=== PATIENT | male | born 2000 | race Two or more races ===

== ENCOUNTER 2024-09-14 21:04 | Emergency (ER) | payer SELFPAY ==
[2024-09-14 21:16] VITALS: PULSE 74; RESP 18; O2SAT 97; BMI 22.7
[2024-09-14 21:21] VITALS: BP 143/84; PULSE 66; RESP 18; TEMP 36.6; O2SAT 96
--- NOTE | 2024-09-14 21:29 | PD.EDRME ---
Rapid Medical Screening Exam RME Arrival date/time: 09/14/24 21:04 24 yo m present to ED for c/o of n/v, for 3 days I have greeted and performed a focused initial assessment of this patient. A comprehensive ED assessment and evaluation of the patient, analysis of all test results, and completion of the medical decision making process will be conducted by additional ED providers. Chief Complaint: Nausea/Vomiting/Diarrhea Vital signs: Vital Signs Temperature 97.9 F 09/14/24 21:21 Pulse Rate 66 09/14/24 21:21 Respiratory Rate 18 09/14/24 21:21 Blood Pressure 143/84 H 09/14/24 21:21 Pulse Oximetry (%) 96 09/14/24 21:21 Oxygen Delivery Method Room Air 09/14/24 21:21
[2024-09-14] MEDS: ONDANSETRON ODT 4 MG TABRAP 8 MG PO (22:15)
[2024-09-14] MEDS: KETOROLAC INJ 60 MG/2 ML VIAL 30 MG IM (22:17)
[2024-09-14 22:43] LABS: Basophils % (Auto) 0 % (0-2.5); Eosinophils % (Auto) 0 % (0-10); Hematocrit 40.7 % (41.0-53.0); Hemoglobin 14.1 g/dL (13.5-16.0); Immature Granulocytes % (Auto) 0 % (0-0); Immature Granulocytes Auto 0.03 Thou/mm3 (0.00-0.00); Lymphocytes # (Auto) 1.1 Thou/mm3 (1.0-4.8); Lymphocytes % (Auto) 10 % (10-50); Mean Corpuscular HGB Conc 34.6 g/dl (31.0-37.0); Mean Corpuscular Hemoglobin 30.7 pg (25.0-35.0); Mean Corpuscular Volume 89 fL (80-100); Monocytes # (Auto) 0.5 Thou/mm3 (0.0-0.8); Monocytes % (Auto) 4 % (0-12); Neutrophils # (Auto) 9.2 Thou/mm3 (1.8-7.7); Neutrophils % (Auto) 85 % (37-80); Nucleated Red Blood Cell % 0 /100 WBC (0); Platelet Count 370 Thou/mm3 (140-440); Red Blood Count 4.59 Miln/mm3 (4.50-5.90); White Blood Count 10.7 Thou/mm3 (3.8-10.6)
[2024-09-14 23:09] LABS: Alanine Aminotransferase 21 U/L (10-49); Albumin, Serum 5.4 gm/dL (3.5-5.0); Albumin/Globulin Ratio 1.8 (1.2-2.2); Alcohol, Blood Medical < 3.0 mg/dL (0-10.0); Alkaline Phosphatase 81 U/L (46-116); Anion Gap 8 (7-16); Aspartate Amino Transferase 29 U/L (0-34); BUN/Creatinine Ratio 18 Ratio (12-20); Bilirubin,Total 0.6 mg/dL (0.3-1.2); Blood Urea Nitrogen 20 mg/dL (9-23); Calcium 10.4 mg/dL (8.3-10.6); Calcium (Corrected) 10.4 mg/dL (8.5-10.1); Carbon Dioxide 24.7 mMol/L (20.0-31.0); Chloride 103 mMol/L (98-107); Creatinine (Component) 1.1 mg/dL (0.6-1.3); Estimated Creatinine Clearance 97.2 mL/min (>60); Glucose 150 mg/dL (74-106); Lipase 30 U/L (12-53); Osmolality,Calculated 277 (275-295); Potassium 4.3 mMol/L (3.4-5.1); Sodium 136 mMol/L (136-145); Total Protein 8.4 gm/dL (5.7-8.2); eGFR > 60 See Note
[2024-09-14 23:45] LABS: Amphetamine/Methamp Scrn,U Negative (Negative); Barbiturate Screen,Urine Negative (Negative); Benzodiazepines Screen,Urine Negative (Negative); Benzoylecgonine Screen, Ur Negative (Negative); Fentanyl Screen,Urine Negative (Negative); Opiate Screen,Urine Negative (Negative); THC Screen,Urine Positive (Negative)
--- NOTE | 2024-09-15 00:14 | PC.NURSE ---
CALLED PT IN ER LOBBY AND OUTSIDE AND NO ANSWER AT THIS TIME.
--- NOTE | 2024-09-15 00:55 | PC.NURSE ---
CALLED PT OUTSIDE OF ER AND IN ER LOBBY AND NO ANSWER AT THIS TIME
--- NOTE | 2024-09-15 01:04 | PD.EDNV ---
Nausea/Vomit./Diarrhea-RME/HPI General Chief complaint: Nausea/Vomiting/Diarrhea Stated complaint: NAUSEA/VOMITING Time Seen by Provider: 09/14/24 23:11 Arrival date/time: 09/14/24 21:04 RME / HPI RME / HPI Narrative: 09/14/24 21:04 24 yo m present to ED for c/o of n/v, for 3 days I have greeted and performed a focused initial assessment of this patient. A comprehensive ED assessment and evaluation of the patient, analysis of all test results, and completion of the medical decision making process will be conducted by additional ED providers. This section includes all my notes and documentations, including HPI, PE, and ED course. Jeet Chicas MD HPI: ROS: All negative except as documented in HPI. Physical Exam: General: Alert and oriented. Eyes: Conjunctivae and lids clear. ENT: No nasal congestion. Neck: Supple. Lungs: No respiratory distress. Skin: Warm and dry. Neuro: Alert and oriented X 3. Physical Exam: General: Alert and oriented. No acute distress when remaining still. Eyes: Conjunctivae and lids clear. ENT: No nasal congestion. Neck: Supple. Heart: RRR. Lungs: No respiratory distress. Good air movement. No rhonchi, wheezing, rales. Abdomen: Soft and nontender. Normal bowel sounds. No distension. No rebound or guarding. Back: No CVA tenderness. Skin: Warm and dry. Neuro: Alert and oriented X 3. Physical Exam: General: Alert and oriented. No acute distress. Eyes: Conjunctivae and lids clear. EOMI. PERRL. ENT: No nasal congestion. Pharynx normal. Tympanic membrane normal bilaterally. Neck: Supple. No lymphadenopathy. No JVD. Heart: RRR. Lungs: No respiratory distress. Good air movement. No rhonchi, wheezing, rales. Chest: No tenderness. Abdomen: Soft and nontender. Normal bowel sounds. No distension. No rebound or guarding. Back: No CVA tenderness. Legs: No clubbing, cyanosis, edema. Skin: Warm and dry. Neuro: Alert and oriented X 3. Cranial Nerves II-XII grossly intact. No peripheral motor deficits. Musculoskeletal: All major joints and bones are not tender with no limited ROM. I reviewed EMS and fpc notes. I reviewed all diagnostic test results. My interpretation of the EKG is My interpretation of the chest x-ray is My review of the CT report is Blood tests and urine tests At this point, diagnoses include Treatment here included Significant improvement Not yet done: I discussed the case with our hospitalist. About the presentation and exam and diagnostics and treatments here. And need of further care in the hospital. Will accept the patient. Not yet done: Based on my best medical judgment, made decision no further evaluation or treatment indicated at this time. Patient understands and agrees to the discharge instructions customized and printed, see below. Jeet Chicas MD Related Data Previous Rx's ?Medication ?Instructions ?Recorded ibuprofen 600 mg tablet 600 mg PO Q8HR PRN PAIN #24 tabs 02/18/16 ibuprofen 600 mg tablet 600 mg PO Q6H #30 tabs 04/20/19 Allergies Allergy/AdvReac Type Severity Reaction Status Date / Time No Known Allergies Allergy Mild NA Uncoded 09/14/24 21:19 Course Orders Category Date Time Status Blood glucose [Bedside Blood Glucose] NOW Care 09/14/24 21:27 Active Alcohol, Blood Medical Stat Lab 09/14/24 22:24 Completed CBC Stat Lab 09/14/24 22:24 Completed CMP [Comprehensive Metabolic Panel] Stat Lab 09/14/24 22:24 Completed Drug Screen,Urine Stat Lab 09/14/24 22:56 Completed Lipase Stat Lab 09/14/24 22:24 Completed Ketorolac Inj [Toradol Inj] Med 09/14/24 21:28 Discontinued 30 mg IM X1 ONE Ondansetron Odt [Zofran Odt] Med 09/14/24 21:27 Discontinued 8 mg PO X1 ONE Vital Signs Vital signs: Vital Signs Temperature 97.9 F 09/14/24 21:21 Pulse Rate 66 09/14/24 21:21 Respiratory Rate 18 09/14/24 21:21 Blood Pressure 143/84 H 09/14/24 21:21 Pulse Oximetry (%) 96 09/14/24 21:21 Oxygen Delivery Method Room Air 09/14/24 21:21 Nausea/Vomiting/Diarrhea Medications / Prescriptions Medication administrations:: Medication Administration History Discontinued Medications Ketorolac Tromethamine (Ketorolac Inj 60 Mg/2 Ml Vial) 30 mg IM X1 ONE Stop: 09/14/24 21:29 Last Admin: 09/14/24 22:17 Dose: 30 mg Documented By: Ondansetron HCl (Ondansetron Odt 4 Mg Tabrap) 8 mg PO X1 ONE; Protocol Stop: 09/14/24 21:28 Last Admin: 09/14/24 22:15 Dose: 8 mg Documented By: Discharge Plan Prescriptions/Referrals Prescriptions/Med Rec: No Action ibuprofen 600 MG tablet 600 mg PO Q8HR PRN (Reason: PAIN) Qty: 24 0RF ibuprofen 600 mg tablet 600 mg PO Q6H Qty: 30 0RF Referrals: No Primary/Family,Physician [Primary Care Provider] - In 1 week Patient/Caregiver Discharge Instructions Print Language: Lithuanian
--- NOTE | 2024-09-15 01:08 | PD.EDADDENDU ---
Emergency Room Addendum Addendum Narrative: When I looked for the patient to start my evaluation and treatment, I was told the patient eloped. CYRIL Ruiz initially saw the patient. Jeet Chicas MD
--- NOTE | 2024-09-15 01:08 | PC.NURSE ---
CALLED PT TO SEE DR BUT NO ANSWER.
== END 2024-09-15 01:15 | disposition left against medical advice (07) ==
PROVIDERS: Physician Assistant; Emergency Provider Emergency Medicine
DX: R11.2 Nausea with vomiting, unspecified (principal); R19.7 Diarrhea, unspecified; Z53.29 Procedure and treatment not carried out because of patient's decision for other reasons
CPT/HCPCS: 36415; 80053; 80307; 80320; 83690; 85025; 96372; 99281; J1885; Q0162; G0480

== ENCOUNTER 2025-03-02 12:33 | Emergency (ER) | payer SELFPAY ==
[2025-03-02 13:24] VITALS: BP 128/83; PULSE 64; RESP 20; TEMP 36.4; O2SAT 100
[2025-03-02] MEDS: ONDANSETRON ODT 4 MG TABRAP PO (13:42)
--- NOTE | 2025-03-02 13:45 | PD.EDRME ---
Rapid Medical Screening Exam E Arrival date/time: 03/02/25 12:33 This is a 24-year-old male that comes into the emergency room with complaints of abdominal pain. Patient is also complaining nausea vomiting. Patient reports smoking marijuana. I have greeted and performed a focused initial assessment of this patient. Initial appropriate labs ordered at this time. A comprehensive ED assessment and evaluation of the patient and analysis of all test and completion of medical decision making process will be conducted by additional ED provider. Chief Complaint: Abdominal Pain Time Seen by Provider: 03/02/25 13:02 Vital signs: Vital Signs Temperature 97.5 F 03/02/25 13:24 Pulse Rate 64 03/02/25 13:24 Respiratory Rate 20 03/02/25 13:24 Blood Pressure 128/83 03/02/25 13:24 Pulse Oximetry (%) 100 03/02/25 13:24 Oxygen Delivery Method Room Air 03/02/25 13:24 Exam: Alert oriented Breathing even and unlabored Diffuse abdominal pain GCS 15 Clinical Impression: Marijuana associated abdominal pain and vomiting versus appendicitis versus gallstones differential diagnosis
[2025-03-02 14:04] LABS: Basophils # (Auto) 0.1 Thou/mm3 (0.0-0.2); Basophils % (Auto) 1 % (0-2.5); Eosinophils # (Auto) 0.0 Thou/mm3 (0.0-0.5); Eosinophils % (Auto) 0 % (0-10); Hematocrit 40.6 % (41.0-53.0); Hemoglobin 14.4 g/dL (13.5-16.0); Immature Granulocytes Auto 0.06 Thou/mm3 (0.00-0.00); Lymphocytes # (Auto) 1.8 Thou/mm3 (1.0-4.8); Lymphocytes % (Auto) 19 % (10-50); Mean Corpuscular HGB Conc 35.5 g/dl (31.0-37.0); Mean Corpuscular Hemoglobin 31.3 pg (25.0-35.0); Mean Corpuscular Volume 88 fL (80-100); Monocytes # (Auto) 0.5 Thou/mm3 (0.0-0.8); Monocytes % (Auto) 5 % (0-12); Neutrophils # (Auto) 6.8 Thou/mm3 (1.8-7.7); Neutrophils % (Auto) 74 % (37-80); Nucleated Red Blood Cell # 0.00 Thou/mm3 (0.00-0.00); Nucleated Red Blood Cell % 0 /100 WBC (0); Platelet Count 375 Thou/mm3 (140-440); RDW Standard Deviation 38.7 fL (35.1-43.9); Red Blood Count 4.60 Miln/mm3 (4.50-5.90); White Blood Count 9.1 Thou/mm3 (3.8-10.6)
[2025-03-02] MEDS: HYDROcodone/APAP 5/325 TABLET 1 TAB PO (14:28)
[2025-03-02 14:31] LABS: Collection Type, Urine Voided; Squamous Epithelial Cell,Urine 0 /hpf (0-5)
[2025-03-02 14:49] LABS: Alanine Aminotransferase 8 U/L (10-49); Albumin, Serum 5.5 gm/dL (3.5-5.0); Albumin/Globulin Ratio 2.1 (1.2-2.2); Alkaline Phosphatase 94 U/L (46-116); Anion Gap 16 (7-16); Aspartate Amino Transferase 18 U/L (0-34); BUN/Creatinine Ratio 13 Ratio (12-20); Bilirubin,Total 0.6 mg/dL (0.3-1.2); Blood Urea Nitrogen 16 mg/dL (9-23); Calcium 10.2 mg/dL (8.3-10.6); Calcium (Corrected) 10.2 mg/dL (8.5-10.1); Carbon Dioxide 21.7 mMol/L (20.0-31.0); Chloride 102 mMol/L (98-107); Creatinine (Component) 1.2 mg/dL (0.6-1.3); Globulin 2.6 gm/dL (2.3-3.5); Glucose 141 mg/dL (74-106); Lipase 22 U/L (12-53); Osmolality,Calculated 282 (275-295); Potassium 3.8 mMol/L (3.4-5.1); Sodium 140 mMol/L (136-145); Total Protein 8.1 gm/dL (5.7-8.2); eGFR > 60 See Note
[2025-03-02 14:55] LABS: Bilirubin,Urine 1+ (Negative); Blood,Urine Negative (Negative); Color,Urine Yellow (Lt Yel-Yel); Culture Indicated,Urine Not Indicated; Glucose, Urine Trace (Negative); Ketones,Urine 1+ (Negative); Leukocyte Esterase,Urine Negative (Negative); Nitrite,Urine Negative (Negative); PH,Urine 6.0 (5.0-7.0); Protein,Urine 2+ (Neg - Trace); RBC,Urine 4 /hpf (0-3); Specific Gravity,Urine 1.044 (1.001-1.035); Urobilinogen,Urine 3.0 mg/dL (0.0-1.0); WBC,Urine 4 /hpf (0-5)
[2025-03-02 14:56] LABS: Amphetamine/Methamp Scrn,U Negative (Negative); Barbiturate Screen,Urine Negative (Negative); Benzodiazepines Screen,Urine Negative (Negative); Benzoylecgonine Screen, Ur Negative (Negative); Fentanyl Screen,Urine Negative (Negative); Opiate Screen,Urine Negative (Negative); THC Screen,Urine Positive (Negative)
[2025-03-02 14:58] LABS: Clarity,Urine Hazy (Clear/Hazy)
--- NOTE | 2025-03-02 15:28 | PD.EDABDPN ---
ED Abdominal Pain RME/HPI General Chief Complaint: Abdominal Pain Stated complaint: VOMITING W/ BURNING ABD PAIN X 1 DAY Time seen by provider: 03/02/25 13:02 Arrival date/time: 03/02/25 12:33 RME / HPI RME / HPI narrative: 03/02/25 12:33 This is a 24-year-old male that comes into the emergency room with complaints of abdominal pain. Patient is also complaining nausea vomiting. Patient reports smoking marijuana. I have greeted and performed a focused initial assessment of this patient. Initial appropriate labs ordered at this time. A comprehensive ED assessment and evaluation of the patient and analysis of all test and completion of medical decision making process will be conducted by additional ED provider. DR. LASSITER MAIN ED EVALUATION: 24-year-old male presents to the Emergency Department accompanied by his mother for abdominal pain, nausea, and vomiting for the past two days. The patient denies fever, chills, diarrhea, or dysuria. He reports having frequent episodes of similar symptoms throughout the year, and during previous visits, he was reportedly diagnosed with rhabdomyolysis. No recent travel, trauma, or new medications. He admits to regular marijuana use. Also history of mental illness and a prior suicide attempt on 02/05/2022; ingestion of 3 Benadryl and 1 Xanax. Related Data Previous Rx's ?Medication ?Instructions ?Recorded ibuprofen 600 mg tablet 600 mg PO Q8HR PRN PAIN #24 tabs 02/18/16 ibuprofen 600 mg tablet 600 mg PO Q6H #30 tabs 04/20/19 promethazine 12.5 mg tablet 12.5 mg PO TID PRN nausea and 03/02/25 vomiting #20 tabs promethazine 25 mg rectal 25 mg NJ Q6H PRN nausea and 03/02/25 suppository vomiting #12 ea Allergies Allergy/AdvReac Type Severity Reaction Status Date / Time No Known Allergies Allergy Verified 03/02/25 12:36 Review of Systems Review of Systems Systems Reviewed: All systems reviewed, normal except as documented Past Medical History Social History SMOKING STATUS: Never smoker SUBSTANCE USE: does not use ALCOHOL: Never ED Exam Narrative Physical exam: GENERAL APPEARANCE: Agitated, restless, and moving around in the gurney; appears uncomfortable VITALS: All vitals were reviewed and the pulse ox is 100% on room air, which is normal according to my interpretation. HEENT: Normocephalic, atraumatic; pupils equal, round, reactive to light; EOMI; mucous membranes pink, moist; oropharynx clear NECK: Supple LUNGS: CTABL; no wheezes, no rales, no rhonchi HEART: Regular rate, regular rhythm; normal S1, S2; no murmurs ABDOMEN: non distended; normal BS; soft, no tenderness, no guarding, no rebound; no masses, no organomegaly, no hernia BACK: no CVA tenderness EXTREMITIES: atraumatic; no edema NEUROLOGIC: awake; alert and oriented x4; cranial nerves II-XII grossly intact; no focal sensory or motor deficits PSYCHIATRIC: appropriate mood and affect SKIN: warm, dry, normal color; no rashes Course Quality Measures none Orders Category Date Time Status CT Screening NOW Care 03/02/25 15:38 Completed Insert IV NOW Care 03/02/25 16:[address] abdomen pelvis w con Stat Exams 03/02/25 15:38 Completed CBC Stat Lab 03/02/25 13:55 Completed Comprehensive Metabolic Panel Stat Lab 03/02/25 13:55 Completed Creatine Kinase Stat Lab 03/02/25 13:55 Completed Drug Screen,Urine Stat Lab 03/02/25 14:00 Completed Lipase Stat Lab 03/02/25 13:55 Completed Urinalysis, C/S if Indicated Stat Lab 03/02/25 14:00 Completed HYDROcodone*/APAP 5/325 [Urania 5/325] Med 03/02/25 14:17 Discontinued 1 tab PO X1 ONE Morphine* Inj Med 03/02/25 15:37 Discontinued 4 mg IVP X1 ONE Ondansetron Inj [Zofran Inj] Med 03/02/25 15:37 Discontinued 4 mg IVP X1 ONE Ondansetron Odt [Zofran Odt] Med 03/02/25 13:37 Discontinued 4 mg PO X1 ONE Prochlorperazine Inj [Compazine Inj] Med 03/02/25 19:28 Discontinued 5 mg IV X1 ONE Sodium Chloride 0.9% 1000 ml [Ns] 1,000 ml Med 03/02/25 15:36 Discontinued IV 999 mls/hr Sodium Chloride 0.9% 1000 ml [Ns] 1,000 ml Med 03/02/25 15:36 Discontinued IV 999 mls/hr Vital Signs Vital signs: Vital Signs Temperature 97.5 F 03/02/25 13:24 Pulse Rate 64 03/02/25 13:24 Respiratory Rate 20 03/02/25 13:24 Blood Pressure 128/83 03/02/25 13:24 Pulse Oximetry (%) 100 03/02/25 13:24 Oxygen Delivery Method Room Air 03/02/25 13:24 Abdominal Pain MDM MDM Narrative MDM Narrative:: I, Aditi Butt am scribing for and in the presence of Dr. Lassiter. Patient data External records reviewed:: [facility] previous records Clinical information provided by:: patient Social determinants that could affect healthcare access:: substance use (marijuana use) Patient has the following chronic illnesses:: He reports having frequent episodes of similar symptoms throughout the year, and during previous visits, he was reportedly diagnosed with rhabdomyolysis. No recent travel, trauma, or new medications. Also history of mental illness and a prior suicide attempt on 02/05/2022; ingestion of 3 Benadryl and 1 Xanax. How is presenting disease/condition affected by chronic disease/condition?: exacerbated by Evaluation data The following diagnostics were reviewed and interpreted by me:: lab results and radiology exam(s) Lab and/or radiology exams considered but not ordered:: none Interpretation Summary: Pending CT. Medications / Prescriptions Medications or Prescriptions considered but not ordered:: none Medication administrations:: Medication Administration History Discontinued Medications Hydrocodone Bitart/Acetaminophen (Hydrocodone/Apap 5/325 Tablet) 1 tab PO X1 ONE Stop: 03/02/25 14:18 Last Admin: 03/02/25 14:28 Dose: 1 tab Documented By: KAROL Sodium Chloride (Ns) 1,000 mls @ 999 mls/hr IV .Q1H1M ONE Stop: 03/02/25 16:36 Last Infusion: 03/02/25 17:30 Dose: Infused Documented By: Admin: 03/02/25 16:29 Dose: 999 mls/hr Documented By: MARK Sodium Chloride (Ns) 1,000 mls @ 999 mls/hr IV .Q1H1M ONE Stop: 03/02/25 16:36 Last Infusion: 03/02/25 17:31 Dose: Infused Documented By: Admin: 03/02/25 16:30 Dose: 999 mls/hr Documented By: MARK Morphine Sulfate (Morphine Sulf Inj 4 Mg/Ml Vial) 4 mg IVP X1 ONE Stop: 03/02/25 15:38 Last Admin: 03/02/25 16:29 Dose: 4 mg Documented By: TM Ondansetron HCl (Ondansetron Odt 4 Mg Tabrap) 4 mg PO X1 ONE; Protocol Stop: 03/02/25 13:38 Last Admin: 03/02/25 13:42 Dose: 4 mg Documented By: OA Ondansetron HCl (Ondansetron Inj 2 Mg/Ml Inj 2 Ml) 4 mg IVP X1 ONE Stop: 03/02/25 15:38 Last Admin: 03/02/25 16:29 Dose: 4 mg Documented By: TM Prochlorperazine Edisylate (Prochlorperazine Inj 5 Mg/Ml Vial 2 Ml) 5 mg IV X1 ONE; Protocol Stop: 03/02/25 19:29 Last Admin: 03/02/25 19:43 Dose: 5 mg Documented By: AC see above Consultations Consultation(s) initiated? (list below): No Diagnosis Differential diagnosis abdominal pain: other (Cannabinoid hyperemesis syndrome, recurrent rhabdomyolysis, and dehydration.) Most likely diagnosis given after review of the tests above:: No official diagnoses at this time, still pending diagnostic tests. Patient signout to the production supervisor off shift provider. Admission Indicated Admission indicated?: not indicated Explain why admission is indicated or not indicated:: No final disposition plan at this time, still pending diagnostic tests. Patient signout to the production supervisor off shift provider. Admission Request Was there a request for admission?: No Disposition Plan Disposition Plan: other (specify) (Patient signed out to Dr. Poe, pending CT.) Discharge Plan Plan Patient Disposition: HOME (Self Care) Discharge Disposition comment: Stable Prescriptions/Referrals Prescriptions/Med Rec: New promethazine 12.5 mg tablet 12.5 mg PO TID PRN (Reason: nausea and vomiting) Qty: 20 0RF promethazine 25 mg suppository 25 mg NJ Q6H PRN (Reason: nausea and vomiting) Qty: 12 0RF No Action ibuprofen 600 MG tablet 600 mg PO Q8HR PRN (Reason: PAIN) Qty: 24 0RF ibuprofen 600 mg tablet 600 mg PO Q6H Qty: 30 0RF Referrals: Derek Alston MD [Primary Care Provider, Family Practice] - In 1 week Problem List Clinical Impression: Cannabinoid hyperemesis syndrome Patient/Caregiver Discharge Instructions Discharge Activity: activity as tolerated Diet Instructions: Clear liquid diet x 24 to 48 hours and advance as tolerated. Avoid hot spicy foods, dairy products for 2 weeks. Education Materials: Cannabinoid Hyperemesis Syndrome Additional Instructions: Clear liquid diet x 24 to 48 hours. Advance as tolerated. Avoid any hot spicy foods or dairy products. Return for fever increasing abdominal pain persistent vomiting worsening illness Print Language: Jamaican Stand Alone Forms: [facility] Award Info., Patient Portal Info Letter
--- NOTE | 2025-03-02 15:38 | XR_ITS ---
Examination: CT abdomen with intravenous contrast CT pelvis with intravenous contrast 2-D coronal reconstructions 2-D sagittal reconstructions Date and time of exam: March 02, 2025, 1618 hours INDICATIONS: Sudden generalized abdominal pain beginning 2 days ago. CTDI: vol (mGy) 7.18 DLP: (mGycm) 390 Technique: Multiple axial sections of the abdomen and pelvis have been obtained. 64 slice high-resolution scanner used. 3 mm axial sections have been obtained, post intravenous injection 60 cc of [id number] 2-D sagittal, coronal reconstructions obtained. Low dose protocols were performed. One or more of the following dose reduction techniques were used; automated exposure control, adjustment of the mA and/or KV according to patient size, use of iterative reconstruction technique. Findings: No focal liver or splenic lesions No gallstones No pancreatic or adrenal mass No renal or ureteral calculi, no hydronephrosis Aorta normal size. Normal appendix No bowel obstruction No diverticulitis Normal seminal vesicles Contracted urinary bladder Mild osteophyte formation posteriorly L4-L5 IMPRESSION: Normal appendix No renal or ureteral calculi, no hydronephrosis No bowel obstruction
--- NOTE | 2025-03-02 16:20 | PC.NURSE ---
PT AT [facility] [place] UPON ASSUMPTION OF CARE
[2025-03-02 16:21] LABS: Creatine Kinase 172 U/L (34-171)
[2025-03-02] MEDS: ONDANSETRON INJ 2 MG/ML INJ 2 ML 4 MG IVP (16:29)
[2025-03-02] MEDS: SODIUM CHLORIDE 0.9% 1000 ML 1,000 ML 999 ML IV ×2 (16:29→16:30)
[2025-03-02] MEDS: MORPHINE SULF INJ 4 MG/ML VIAL IVP (16:29)
--- NOTE | 2025-03-02 16:38 | PC.NURSE ---
PT COMES IN COMPLAINING OF 2 DAYS OF ABD PAIN, W/N/V, WENT TO CT WAITING RESULTS PENDING, FAMILY AT BEDSIDE ATTENTIVE TO PT, MEDICATED FOR PAIN, BBOLUS INFUSING, VSS ON TELE, WILL CONT W/POC.
[2025-03-02 17:55] VITALS: BP 114/92; PULSE 78; RESP 19; TEMP 36.4; O2SAT 98
--- NOTE | 2025-03-02 18:08 | PD.EDADDENDU ---
Emergency Room Addendum Addendum Narrative: 1800: Care assumed from Dr. Lassiter, the previous shift emergency physician. Past medical, surgical, social and family history reviewed. Vitals and home medications reviewed. Results and treatment plan discussed. I will assume the care of the patient at this time and will follow the patient. Please refer to the emergency department record for history and examination from initial visit. 24yo male presenting with recurrent generalized abdominal pain with associated nausea and vomiting for the last several days in the absence of fever or diarrhea. Patient notes he's had similar episodes that have spontaneously resolved, sometimes lasting up to 5 days. Clinically, patient appears mildly uncomfortable after having received low-dose narcotic analgesics and antiemetics. Abdominal exam is benign. Lab work-up also essentially negative. Tox screen positive for marijuana. CT abdomen pelvis is unrevealing. Suspect cannabinoid hyperemesis syndrome. I recommended the patient to discontinue or significantly reduce marijuana use. Will treat with phenothiazines and recommend clear liquid diet for 24-48 hours. Precaution instructions issued. Dx: Cannabinoid hyperemesis syndrome RADIOLOGY RESULTS: [facility] Report Signed Patient: JULIANN MEDINA. Record#: [id number] Birthdate: 2000 Age/Sex: 24 / M Location: [facility] Attending Dr: Ordering Physician: Anabel Lassiter MD Date of Service: 03/02/25 Procedure(s): CT abdomen pelvis w con Accession Number(s): [id number] cc: Derek Alston MD; Pola Colin MD; Anabel Lassiter MD~ Examination: CT abdomen with intravenous contrast CT pelvis with intravenous contrast 2-D coronal reconstructions 2-D sagittal reconstructions Date and time of exam: March 02, 2025, 1618 hours INDICATIONS: Sudden generalized abdominal pain beginning 2 days ago. CTDI: vol (mGy) 7.18 DLP: (mGycm) 390 Technique: Multiple axial sections of the abdomen and pelvis have been obtained. 64 slice high-resolution scanner used. 3 mm axial sections have been obtained, post intravenous injection 60 cc of [id number] 2-D sagittal, coronal reconstructions obtained. Low dose protocols were performed. One or more of the following dose reduction techniques were used; automated exposure control, adjustment of the mA and/or KV according to patient size, use of iterative reconstruction technique. Findings: No focal liver or splenic lesions No gallstones No pancreatic or adrenal mass No renal or ureteral calculi, no hydronephrosis Aorta normal size. Normal appendix No bowel obstruction No diverticulitis Normal seminal vesicles Contracted urinary bladder Mild osteophyte formation posteriorly L4-L5 IMPRESSION: Normal appendix No renal or ureteral calculi, no hydronephrosis No bowel obstruction Dictated By: Pola Colin MD Signed By: <Electronically signed by Pola Colin MD in OV> 03/02/25 [id number]
[2025-03-02] MEDS: PROCHLORPERAZINE INJ 5 MG/ML VIAL 2 ML IV (19:43)
[2025-03-02 19:46] VITALS: BP 116/88; PULSE 99; RESP 18; TEMP 36.7; O2SAT 99
== END 2025-03-02 19:52 | disposition home or self-care (01) ==
PROVIDERS: Nurse Practitioner Family; Emergency Provider Emergency Medicine; PCP Family Medicine
DX: R11.16 Cannabis hyperemesis syndrome (principal); Z91.51 Personal history of suicidal behavior
CPT/HCPCS: 36415; 74177; 80053; 80307; 81001; 82550; 83690; 85025; 99283; A4649; J0780; J2270; J2405; J7030; Q0162; Q9967; A9270

== ENCOUNTER 2025-04-20 16:23 | Emergency (ER) | payer MEDICAID, SELFPAY ==
[2025-04-20 16:24] VITALS: BMI 25.1
--- NOTE | 2025-04-20 17:13 | PC.NURSE ---
FAMILY MEMBER COMING UP TO TRIAGE DESK YELLING AT TRIAGE NURSE ABOUT HOW HOW THE PATIENT CAN NOT SIT STILL, AND THAT MAYBE HE WOULDNT BE LIKE THIS IF WE CALLED HIM BACK ALREADY.
[2025-04-20 17:23] VITALS: BP 108/72; PULSE 72; RESP 18; TEMP 36.6; O2SAT 96
--- NOTE | 2025-04-20 17:27 | PD.EDRME ---
Rapid Medical Screening Exam RME Arrival date/time: 04/20/25 16:23 Chief Complaint: Psychiatric Symptoms Vital signs: Vital Signs Temperature 98 F 04/20/25 17:23 Pulse Rate 72 04/20/25 17:23 Respiratory Rate 18 04/20/25 17:23 Blood Pressure 108/72 04/20/25 17:23 Pulse Oximetry (%) 96 04/20/25 17:23 Oxygen Delivery Method Room Air 04/20/25 17:23 E Narrative: Suicidal ideations x 2 years. Denies plan. I just couldn't take the thoughts anymore. Exam: No acute distress Clinical Impression: Suicidal ideations
--- NOTE | 2025-04-20 17:39 | PD.EDSUICD ---
ED Psych RME/HPI General Chief Complaint: Psychiatric Symptoms Stated Complaint: SUICIDAL Time Seen by Provider: 04/20/25 17:36 Arrival date/time: 04/20/25 16:23 RME / HPI RME / HPI Narrative: Suicidal ideations x 2 years. Denies plan. I just couldn't take the thoughts anymore. DR. BARRETT MAIN ED EVALUATION: 25 y/o male presents to ED with suicidal ideation stating that he felt like not being here anymore . Denies alcohol and states that his eyelids are swollen due to excessive crying. Exam: No acute distress Impression: Suicidal ideations Related Data Previous Rx's ?Medication ?Instructions ?Recorded ibuprofen 600 mg tablet 600 mg PO Q8HR PRN PAIN #24 tabs 02/18/16 ibuprofen 600 mg tablet 600 mg PO Q6H #30 tabs 04/20/19 promethazine 12.5 mg tablet 12.5 mg PO TID PRN nausea and 03/02/25 vomiting #20 tabs promethazine 25 mg rectal 25 mg WI Q6H PRN nausea and 03/02/25 suppository vomiting #12 ea Allergies Allergy/AdvReac Type Severity Reaction Status Date / Time No Known Allergies Allergy Verified 03/02/25 12:36 Review of Systems Review of Systems Systems Reviewed: All systems reviewed, normal except as documented Past Medical History Past Medical History PSYCHO/SOCIAL: Positive Recreational Drug Use, Depression and Anxiety Social History SMOKING STATUS: Current every day smoker SUBSTANCE USE: marijuana ALCOHOL: Current ED Exam Narrative Physical exam: GENERAL APPEARANCE: alert, well-developed, appears intoxicated VITALS: All vitals were reviewed and the pulse ox is 96% on room air, which is normal according to my interpretation. HEENT: normocephalic, atraumatic NECK: supple LUNGS: no respiratory distress, normal effort HEART: good peripheral perfusion ABDOMEN: non distended EXTREMITIES: atraumatic NEUROLOGIC: awake; intoxicated; cranial nerves II-XII grossly intact PSYCHIATRIC: appropriate mood and affect SKIN: warm, dry, normal color; no rashes Course Course Course Narrative: Patient was placed in observation for treatment and monitoring of psychiatric symptoms, at 1738 04/20/2025. Symptoms consist of suicidal ideation and depression. Treatment plan includes psychiatric consult, reassessments, and possible placement into psychiatric facility. The patient had access and provided personal hygiene, shower, food, water, and daily medications. 1800: Care assumed by Dr. Sánhcez (emergency physician). Past medical, surgical, social and family history reviewed. Vitals and home medications reviewed. Results and treatment plan discussed. They will assume the care of the patient at this time and will follow the patient, pending medical cleareance and psychiatric evaluation. Quality Measures none Orders Category Date Time Status 1799 Psychiatric Hold NOW Care 04/20/25 17:45 Ordered One-to-one observation NOW Care 04/20/25 17:38 Active Alcohol, Urine Stat Lab 04/20/25 17:28 Ordered Drug Screen,Urine Stat Lab 04/20/25 17:28 Ordered Vital Signs Vital signs: Vital Signs Temperature 98 F 04/20/25 17:23 Pulse Rate 72 04/20/25 17:23 Respiratory Rate 18 04/20/25 17:23 Blood Pressure 108/72 04/20/25 17:23 Pulse Oximetry (%) 96 04/20/25 17:23 Oxygen Delivery Method Room Air 04/20/25 17:23 Psych MDM Narrative MDM Narrative:: Scribe Attestation: INatalia, am scribing for and in the presence of Dr. Barrett. Provider Notation: Although this document has been carefully reviewed, there may still be some phonetic and other typographical errors. These errors are purely grammatical due to imperfections in the software program and should not be construed in any way to compromise the substance of the patient's medical care during this visit. Patient data External records reviewed:: [facility] previous records (Reviewed prior ED records from 03/02/25. Patient was seen for Cannabinoid hyperemesis syndrome.) Clinical information provided by:: patient Social determinants that could affect healthcare access:: mental health (Marijuana, Alcohol) Patient has the following chronic illnesses:: Anxiety, Depression How is presenting disease/condition affected by chronic disease/condition?: exacerbated by Evaluation data The following diagnostics were reviewed and interpreted by me:: lab results Lab and/or radiology exams considered but not ordered:: None Interpretation Summary: Laboratory markers pending. Medications / Prescriptions Medications or Prescriptions considered but not ordered:: None Medication administrations:: See above if any Consultations Consultation(s) initiated? (list below): No Diagnosis Psych Differential Diagnosis: acute psychosis, suicidal ideation, bipolar disorder, depression, drug-induced psychotic disorder and acute anxiety Most likely diagnosis given after review of the tests above:: Suicidal ideation, Alcohol intoxication Admission Indicated Admission indicated?: not indicated Explain why admission is indicated or not indicated:: Pending medical clearance and psychiatric evaluation. Admission Request Was there a request for admission?: No Disposition Plan Disposition Plan: other (specify) (Signed out to Dr. Sánchez at 6 PM.) Discharge Plan Prescriptions/Referrals Prescriptions/Med Rec: No Action ibuprofen 600 MG tablet 600 mg PO Q8HR PRN (Reason: PAIN) Qty: 24 0RF ibuprofen 600 mg tablet 600 mg PO Q6H Qty: 30 0RF promethazine 12.5 mg tablet 12.5 mg PO TID PRN (Reason: nausea and vomiting) Qty: 20 0RF promethazine 25 mg suppository 25 mg WI Q6H PRN (Reason: nausea and vomiting) Qty: 12 0RF Problem List Clinical Impression: Suicidal ideation, Alcohol intoxication Patient/Caregiver Discharge Instructions Print Language: Bahraini
--- NOTE | 2025-04-20 17:53 | PC.CC ---
Per bedside RN Ruthy, reports that patient has a plan and intention to end his life with Xanax. He stated that he has done this in the past by taking 24 Xanax in the past that he purchased from a friend. The last two days the patient disclosed he had been drinking [employer] D[employer]. He stated he has not point in living as he recently lost his job. Patient was High Risk on the [place] Screening. Patient will need a mental health evaluation upon being medically cleared.
--- NOTE | 2025-04-20 18:06 | PC.CC ---
Per delivery rep Alicia, the patient's aunt Alcira reports that the patient had a knife to his throat and had to be begged by family members to put the knife down.
--- NOTE | 2025-04-20 18:07 | PD.EDADDENDU ---
Emergency Room Addendum <Wilma Alston - Last Filed: 04/21/25 05:38> Addendum Narrative: 1800: Care assumed from Dr. Lassiter, the previous shift emergency physician. Past medical, surgical, social and family history reviewed. Vitals and home medications reviewed. Results and treatment plan discussed. I will assume the care of the patient at this time and will follow the patient. Please refer to the emergency department record for history and examination from initial visit. Patient was placed in observation for treatment and monitoring of psychiatric symptoms, at 1800 04/20/2025. Symptoms consist of suicidal ideation and depression. Treatment plan includes psychiatric consult, reassessments, and possible placement into psychiatric facility. Patient is a 25-year-old male with no significant past medical history is in the emergency department with thoughts of self-harm after drinking heavily. Prior provider evaluated patient. Ordered labs offer medication for symptom relief. Labs w/o acute hematologic or metabolic abnl. Tylenol and salycilate level unremarkeable. Patient is medically cleared for social work evaluation. Patient remained stable under my care. 0600: Care signed out to Dr. Lassiter (emergency physician). Past medical, surgical, social and family history reviewed. Vitals and home medications reviewed. Results and treatment plan discussed. They will assume the care of the patient at this time and will follow the patient. At this time, observation has ended. <Alcira Sánchez MD - Last Filed: 04/21/25 05:57> Addendum Narrative: 1800: Care assumed from Dr. Lassiter, the previous shift emergency physician. Past medical, surgical, social and family history reviewed. Vitals and home medications reviewed. Results and treatment plan discussed. I will assume the care of the patient at this time and will follow the patient. Please refer to the emergency department record for history and examination from initial visit. Patient is a 25-year-old male with no significant past medical history is in the emergency department with thoughts of self-harm after drinking heavily. Prior provider evaluated patient. Ordered labs offer medication for symptom relief. Labs w/o acute hematologic or metabolic abnl. Tylenol and salycilate level unremarkeable. Patient is medically cleared for social work evaluation.
--- NOTE | 2025-04-20 18:34 | EKG_ITS ---
[facility] Test Date: 2025-04-20 Pat Name: JULIANN MEDINA Department: Room: - Gender: Male Manager Provider Relations: : 2000 Requested By: Alcira Stock Order Number: [id number] Reading MD: Alcira Stock Measurements Intervals [place] Rate: 61 P: 83 WI: 169 QRS: 65 QRSD: 88 T: 65 QT: 384 QTc: 387 Interpretive Statements SINUS RHYTHM Compared to ECG 02/05/2022 19:26:03 No significant changes /store/S0/[id number].pdf
[2025-04-20 18:46] VITALS: BP 113/67; PULSE 65; RESP 20; TEMP 36.8; O2SAT 99
[2025-04-20 18:53] LABS: Base Excess, Venous 4 (-3-3); O2 Saturation, Venous 54 % (96-97); PCO2, Venous 47 mmHg (36-56); PO2, Venous 28 mmHg (15-58); pH, Venous 7.41 (7.33-7.66)
[2025-04-20 18:54] LABS: Basophils # (Auto) 0.0 Thou/mm3 (0.0-0.2); Basophils % (Auto) 1 % (0-2.5); Eosinophils # (Auto) 0.2 Thou/mm3 (0.0-0.5); Eosinophils % (Auto) 3 % (0-10); Hematocrit 39.8 % (41.0-53.0); Hemoglobin 13.1 g/dL (13.5-16.0); Immature Granulocytes Auto 0.02 Thou/mm3 (0.00-0.00); Lymphocytes # (Auto) 2.2 Thou/mm3 (1.0-4.8); Lymphocytes % (Auto) 35 % (10-50); Mean Corpuscular HGB Conc 32.9 g/dl (31.0-37.0); Mean Corpuscular Hemoglobin 30.5 pg (25.0-35.0); Mean Corpuscular Volume 93 fL (80-100); Monocytes # (Auto) 0.4 Thou/mm3 (0.0-0.8); Monocytes % (Auto) 6 % (0-12); Neutrophils # (Auto) 3.4 Thou/mm3 (1.8-7.7); Neutrophils % (Auto) 55 % (37-80); Nucleated Red Blood Cell # 0.00 Thou/mm3 (0.00-0.00); Nucleated Red Blood Cell % 0 /100 WBC (0); Platelet Count 293 Thou/mm3 (140-440); RDW Standard Deviation 45.2 fL (35.1-43.9); Red Blood Count 4.29 Miln/mm3 (4.50-5.90); White Blood Count 6.3 Thou/mm3 (3.8-10.6)
[2025-04-20 19:11] LABS: INR 1.1 (0.9-1.3); Prothrombin Time 11.4 Seconds (9.0-12.2)
[2025-04-20 19:15] LABS: Acetaminophen < 2.0 mcg/mL (10.0-20.0); Alanine Aminotransferase 22 U/L (10-49); Albumin, Serum 4.4 gm/dL (3.5-5.0); Albumin/Globulin Ratio 1.7 (1.2-2.2); Alkaline Phosphatase 75 U/L (46-116); Anion Gap 9 (7-16); Aspartate Amino Transferase 27 U/L (0-34); BUN/Creatinine Ratio 5 Ratio (12-20); Bilirubin,Total 0.4 mg/dL (0.3-1.2); Blood Urea Nitrogen < 5 mg/dL (9-23); Calcium 9.1 mg/dL (8.3-10.6); Calcium (Corrected) 9.1 mg/dL (8.5-10.1); Carbon Dioxide 30.2 mMol/L (20.0-31.0); Chloride 106 mMol/L (98-107); Creatinine (Component) 1.0 mg/dL (0.6-1.3); Estimated Creatinine Clearance 113.9 mL/min (>60); Globulin 2.6 gm/dL (2.3-3.5); Glucose 80 mg/dL (74-106); Osmolality,Calculated 284 (275-295); Potassium 4.1 mMol/L (3.4-5.1); Salicylate < 3.0 mg/dL; Sodium 145 mMol/L (136-145); Total Protein 7.0 gm/dL (5.7-8.2); eGFR > 60 See Note
[2025-04-20] MEDS: RINGERS LACTATED 1000 ML 1,000 ML 999 ML IV (19:27)
[2025-04-20 23:01] LABS: Alcohol, Blood Medical 38.1 mg/dL (0-10.0)
[2025-04-20 23:52] VITALS: BP 113/67; PULSE 81; RESP 22; O2SAT 94
[2025-04-21 05:16] VITALS: BP 110/66; PULSE 78; RESP 17; TEMP 36.6; O2SAT 97
--- NOTE | 2025-04-21 06:20 | PD.EDADDENDU ---
Emergency Room Addendum Addendum Narrative: 0600: Care assumed from Dr. Sánchez, the previous shift emergency physician. Past medical, surgical, social and family history reviewed. Vitals and home medications reviewed. I will assume the care of the patient at this time, pending mental health evaluation. Please refer to the emergency department record for history and examination from initial visit.?The following addendum documentation note is intended to reflect any pending information, findings, or radiology results not included in the patient?s initial chart. 1110a: Notified by our director of social services the patient has been placed on a 5150 hold and at this time pending LPS facility placement. Patient has been accepted at [facility]. Patient has remained stable during my watch.
[2025-04-21 07:02] LABS: Alcohol, Urine Negative (Negative); Amphetamine/Methamp Scrn,U Negative (Negative); Barbiturate Screen,Urine Negative (Negative); Benzodiazepines Screen,Urine Positive (Negative); Benzoylecgonine Screen, Ur Negative (Negative); Fentanyl Screen,Urine Negative (Negative); Opiate Screen,Urine Negative (Negative); THC Screen,Urine Positive (Negative)
[2025-04-21 07:32] VITALS: BP 114/76; PULSE 83; RESP 18; TEMP 36.9; O2SAT 99
--- NOTE | 2025-04-21 08:05 | PC.NURSE ---
CALLED [employer] TO TALK TO PT'S AUNT. SHE IS ON HER WAY TO TALK TO HER.
--- NOTE | 2025-04-21 10:16 | PC.NURSE ---
CALLED AUNT TO BRING CLOTHES FOR HIM PER PATIENT REQUEST.
--- NOTE | 2025-04-21 11:41 | PC.NURSE ---
GAVE PT HIS PHONE TO GET GF NUMBER - HE WANTS TO SPEAK WITH HER. SPOKE WITH SS TO GET UPDATE AND THEY STATED THEY WILL MOST LIKELY BE KEEPING PT AND LOOKING FOR PLACEMENT
[2025-04-21 11:59] VITALS: BP 132/79; PULSE 61; RESP 19; TEMP 36.8; O2SAT 97
--- NOTE | 2025-04-21 12:40 | PC.CC ---
Patient is a 25 year old male brought into the Emergency room by maternal aunt who found patient with a knife to his throat. Patient currently resides with biological mother and 2 sibling in [place]. Patient is not currently working or attending school at this time. Patient was evaluated by ED physician and placed on a 1799 at 04/20 at 5:45 PM. Prior to meeting with patient. DESIRE Chau and MIGUEL Leary met with patient maternal aunt Alcira in conference room. Alcira was able to provide the following information. Patient has been taking what she believes to be Xanax as a means to . Patient aunt reports that patient has no willingness to live and that she will help any way she could. ?DESIRE Chau and MIGUEL Leary met patient face to face in his room. Patient presented with flat affect, at times patient would become upset and cry. Patient states ?I am a failure, I don?t want to continue living this way, I prayed for God to take me.?? Patient reports that he has taken 24 pills of unknown medication on 04/19 and 2 pills on 04/30. Patient reports no history of mental health services. Patient states that he has never been placed on a 5150 hold or placed at a psychiatric facility. Patient has history a substance use marijuana, alcohol and benzos. ?Patient has been placed at a sober living facility but patient does not feel that he has a problem with substance.
--- NOTE | 2025-04-21 12:41 | PC.SS ---
Mode Molina is a 25-Year-old male who was brought in by his aunt, Alcira. Patient was placed on a 1799 due to danger to self. ?Kandi PHIPPS and Sapphire RIVERA met with patient face-to face at bedside. Confidentiality and the purpose of the visit were explained. Patient verbalized understanding. The patient reports active Suicidal ideation, stating, ?I want to and do not want to live anymore.? Patient repeated many times he was a failure. ?Patient reports taking Xanax, which he purchases from the streets. The patient appeared depressed during the assessment, with poor eye contact and flat affect with limited engagement. ?Patient verbalized feeling of hopelessness and stated he feels he has nothing going for himself. When Sapphire RIVERA asked about a plan, the patient reported he would end his life by overdosing on pills; patient endorses a specific suicide plan. He disclosed a history of three prior suicide attempts; last attempt was involving ingestion of Benadryl. Patient denies Auditory and visual hallucinations at this time. However patient states hearing outside voices at times as well as sees figures. Patient reports he does use Marijuana as well. The patient reported he does not have a PCP and is not currently connected to a therapist or mental health services. Collateral information was obtained from the patient?s aunt, Alcira, who reported that prior to arrival the patient had possession of knife and was making statements indication he did not want to live anymore. Alcira reports patient has attempted SI in the past by overdosing on pills. Alcira reports patient has never been placed on a 5150 hold before. Alcira reports she is concerned for patient's safety. Alcira reports patient lives at home with mother and siblings. ?Following further discussion of the case, with Mamie PHIPPS, the patient at this time does meet criteria for a 5150 hold due to danger to self. Hold will remain in place for psychiatric placement. Dr. Messina made aware of recommendation and in agreement.
--- NOTE | 2025-04-21 13:54 | PC.SS ---
Addendum entered by Sapphire Jones 04/21/25 15:46: SS follow up note; ETA set up with [facility], ETA set up for 1650. SS updated patients nurse as well as Ty[facility] FITZPATRICK. SS contacted patient's aunt, Alcira and provided ETA and discharge plan. Addendum entered by Sapphire Jones 04/21/25 14:33: Patient was accepted by [facility]. Accepting Dr. is Dr. Mejia. [facility]. Nurse to nurse contact# [phone]. Patient's nurse Loyd updated. SS will set up transportation with [facility]. Original Note: SS follow up note; SS sent out referral to all [facility] facilities. Pending placement.
--- NOTE | 2025-04-21 14:13 | PC.NURSE ---
MYRA MAGANA - [facility] - [facility] DR CHAVEZ
[2025-04-21 16:46] VITALS: BP 139/81; PULSE 66; RESP 18; TEMP 36.4; O2SAT 98
--- NOTE | 2025-04-21 18:47 | PC.NURSE ---
TRIED TO GIVE REPORT TO MYRA BECKETT- NO ANSWER X3.
== END 2025-04-21 21:46 ==
PROVIDERS: Emergency Medicine; Physician Assistant; Emergency Provider Emergency Medicine
DX: R45.851 Suicidal ideations (principal); F10.129 Alcohol abuse with intoxication, unspecified; F41.9 Anxiety disorder, unspecified; F32.A Depression, unspecified; Y90.1 Blood alcohol level of 20-39 mg/100 ml; Z75.1 Person awaiting admission to adequate facility elsewhere
CPT/HCPCS: 36415; 80053; 80307; 80320; 80329; 82803; 85025; 85610; 93005; 96127; 96360; 99285; J7120; G0480